=== PATIENT | female | born 1935 | race Caucasian/White ===

== ENCOUNTER 2020-04-26 01:53 | Emergency (ER) | payer MEDICARE ==
[~2020-04-26] VITALS: Ht 170.2 cm; Wt 136.3 kg
[~2020-04-26 01:53] MED LIST: ACET325T9 PO; ASPI-886 PO; CALC600T6 PO; D3 PO; DOCU-109 PO; FURO80TA72 PO; GLUC1CAP48 PO; LISI10TA16 PO; MELO7.5T29 PO; POTA20TA4 PO; TRAM50TA PO; Tylenol Arthritis PO; VITA0.4T17 PO
--- NOTE | 2020-04-26 02:07 | PHYS DOC ---
Past Medical History Past Medical History: Arthritis, Hypertension, Other Additional Past Medical Histor: LYMPHEDEMA Past Surgical History: No Surgical History, Other Additional Past Surgical Histo: PT AND FAMILY DOES NOT KNOW IF SHE HAS HAD ANY SURGERY Smoking Status: Never Smoker Alcohol Use: None Drug Use: None General Adult EDM: Chief Complaint: ALTERED MENTAL STATUS HPI: HPI: 84-year-old female significant history of hypertension, dementia, who presents from nursing facility for the evaluation reported left eye ptosis, first noticed at 1800 yesterday evening. However, additional staff members noted no significant change from baseline. The patient self has dementia, and has no acute medical complaints, but history is otherwise limited. She is tearful upon arrival to the ER, and is unsure why she is here. Review of Systems: Review of Systems: History limited secondary to baseline dementia. Heart Score: Risk Factors: Risk Factors: DM, Current or recent (<one month) smoker, HTN, HLP, family history of CAD, obesity. Risk Scores: Score 0 - 3: 2.5% MACE over next 6 weeks - Discharge Home Score 4 - 6: 20.3% MACE over next 6 weeks - Admit for Clinical Observation Score 7 - 10: 72.7% MACE over next 6 weeks - Early Invasive Strategies Allergies: Allergies: Allergies Coded Allergies Type Severity Reaction Last Updated Verified No Known Drug Allergies 01/26/18 No Physical Exam: PE: Gen: NAD. Head: NC/AT. Eyes: No scleral icterus. No conjunctival injection. PERRL. ENT: MMM. Posterior OP clear. Neck: Supple. NT. CV: RRR. Peripheral pulses intact. Resp: CTAB. Abd: Soft. NT. ND. Obese. MSK: No peripheral cyanosis. Large obese symmetric BLEs. Neuro: A&Ox1 (person). Sensation grossly intact throughout. Symmetric BLE weakness. No aphasia or dysarthria. No facial asymmetry. No ptosis. No gross visual field cut. Skin. Warm. Dry. Psych: Tearful. Current Patient Data: Labs: Laboratory Tests Test 04/26/20 02:42 White Blood Count 9.0 x10^3/uL (4.0-11.0) Red Blood Count 4.50 x10^6/uL (3.50-5.40) Hemoglobin 14.4 g/dL (12.0-15.5) Hematocrit 43.3 % (36.0-47.0) Mean Corpuscular Volume 96 fL (79-100) Mean Corpuscular Hemoglobin 32 pg (25-35) Mean Corpuscular Hemoglobin Concent 33 g/dL (31-37) Red Cell Distribution Width 13.5 % (11.5-14.5) Platelet Count 217 x10^3/uL (140-400) Neutrophils (%) (Auto) 56 % (31-73) Lymphocytes (%) (Auto) 30 % (24-48) Monocytes (%) (Auto) 8 % (0-9) Eosinophils (%) (Auto) 6 % (0-3) Basophils (%) (Auto) 1 % (0-3) Neutrophils # (Auto) 5.0 x10^3/uL (1.8-7.7) Lymphocytes # (Auto) 2.7 x10^3/uL (1.0-4.8) Monocytes # (Auto) 0.7 x10^3/uL (0.0-1.1) Eosinophils # (Auto) 0.5 x10^3/uL (0.0-0.7) Basophils # (Auto) 0.1 x10^3/uL (0.0-0.2) Sodium Level 140 mmol/L (136-145) Chloride Level 104 mmol/L (98-107) Carbon Dioxide Level 29 mmol/L (21-32) Anion Gap 7 (6-14) Blood Urea Nitrogen 23 mg/dL (7-20) Estimated GFR (Cockcroft-Gault) 95.2 BUN/Creatinine Ratio 38 (6-20) Glucose Level 93 mg/dL (70-99) Calcium Level 9.0 mg/dL (8.5-10.1) Total Bilirubin 0.5 mg/dL (0.2-1.0) Aspartate Amino Transf (AST/SGOT) 15 U/L (15-37) Alkaline Phosphatase 91 U/L (46-116) Total Protein 6.9 g/dL (6.4-8.2) Albumin 3.3 g/dL (3.4-5.0) Albumin/Globulin Ratio 0.9 (1.0-1.7) EKG: EKG: [] Radiology/Procedures: Radiology/Procedures: EXAM: CT HEAD WITHOUT CONTRAST. HISTORY: Altered mental status. TECHNIQUE: Computed tomography of the head was performed without intravenous contrast. One or more of the following individualized dose reduction techniques were utilized for this examination: 1. Automated exposure control. 2. Adjustment of the mA and/or kV according to patient size. 3. Use of iterative reconstruction technique. COMPARISON: 01/26/2018. FINDINGS: There is no intracranial hemorrhage. Hypoattenuation within the periventricular white matter indicates mild chronic microangiopathic change. Prominence of the lateral ventricles and hemispheric sulci indicates mild atrophy. The visualized paranasal sinuses appear clear. The orbits are unremarkable. The temporal bones are unremarkable. The calvarium reveals no suspicious lesions. There are atherosclerotic calcifications of the internal carotid and vertebral arteries. IMPRESSION: 1. No acute intracranial findings. 2. Mild atrophy and chronic microangiopathic white matter change. Electronically signed by: Blayne Michele MD (04/26/2020 3:12 AM) [facility] Course & Med Decision Making: Course & Med Decision Making Pertinent Labs and Imaging studies reviewed. (See chart for details) In summary, 84-year-old female who presents from nursing facility for the evaluation of reported left-sided ptosis, though additional staff members reportedly did not appreciate this finding. The patient has no acute medical complaints upon presentation to the ER. I see no ptosis or facial asymmetry. No sequelae of stroke. CT head without contrast with no acute findings noted. Lab work is otherwise unrevealing with the exception of mildly elevated B UN/creatinine ratio, tolerating oral fluids. The patient remains well-appearing and nontoxic. I do not suspect stroke or other acute emergent pathology. She will be discharged back to her nursing facility with outpatient follow-up. Return precautions given. Dragon Disclaimer: Dragrosas Disclaimer: This electronic medical record was generated, in whole or in part, using a voice recognition dictation system. Departure Departure Impression: Primary Impression: Feared condition not demonstrated Disposition: 03 DC/TRF TO SNF Condition: STABLE Referrals: GENNARO TILLEY MD (PCP) Patient Instructions: Medical Screening Exam Additional Instructions: Danyelle's CT head showed no acute findings. Her blood work was otherwise unrevealing as well. Have Danyelle follow up with the primary physician. FRANSISCO JOSE DO Apr 26, 2020 02:07
[2020-04-26 02:51] LABS: BASO # 0.1 x10^3/uL (0.0-0.2); BASO % 1 % (0-3); EOS # 0.5 x10^3/uL (0.0-0.7); EOS % 6 % (0-3); HEMATOCRIT 43.3 % (36.0-47.0); HEMOGLOBIN 14.4 g/dL (12.0-15.5); LYMPH # 2.7 x10^3/uL (1.0-4.8); LYMPH % 30 % (24-48); MEAN CORPUSCULAR HEMOGLOBIN 32 pg (25-35); MEAN CORPUSCULAR HGB CONC 33 g/dL (31-37); MEAN CORPUSCULAR VOLUME 96 fL (79-100); MONO # 0.7 x10^3/uL (0.0-1.1); MONO % 8 % (0-9); NEUT % 56 % (31-73); PLATELET COUNT 217 x10^3/uL (140-400); RED CELL DISTRIBUTION WIDTH 13.5 % (11.5-14.5)
[2020-04-26 02:58] LABS: CREATININE 0.6 mg/dL (0.6-1.0); GFR 95.2; POTASSIUM 4.5 mmol/L (3.5-5.1)
[2020-04-26 03:04] LABS: ALBUMIN 3.3 g/dL (3.4-5.0); ALBUMIN/GLOBULIN RATIO 0.9 (1.0-1.7); MAGNESIUM 2.1 mg/dL (1.8-2.4); TOTAL BILIRUBIN 0.5 mg/dL (0.2-1.0); TOTAL PROTEIN 6.9 g/dL (6.4-8.2)
--- NOTE | 2020-04-26 03:14 | RAD ---
EXAM: CT HEAD WITHOUT CONTRAST. HISTORY: Altered mental status. TECHNIQUE: Computed tomography of the head was performed without intravenous contrast. One or more of the following individualized dose reduction techniques were utilized for this examination: 1. Automated exposure control. 2. Adjustment of the mA and/or kV according to patient size. 3. Use of iterative reconstruction technique. COMPARISON: 01/26/2018. FINDINGS: There is no intracranial hemorrhage. Hypoattenuation within the periventricular white matte r indicates mild chronic microangiopathic change. Prominence of the lateral ventricles and hemispheri c sulci indicates mild atrophy. The visualized paranasal sinuses appear clear. The orbits are unremarkable. The temporal bones are un remarkable. The calvarium reveals no suspicious lesions. There are atherosclerotic calcifications of the internal carotid and vertebral arteries. IMPRESSION: 1. No acute intracranial findings. 2. Mild atrophy and chronic microangiopathic white matter change. Electronically signed by: Blayne Michele MD (04/26/2020 3:12 AM) [facility]
[2020-04-26 08:04] VITALS: BP 153/76
== END 2020-04-26 09:25 ==
LOC: ER 01:53
DX: F03.90 Unspecified dementia, unspecified severity, without behavioral disturbance, psychotic disturbance, mood disturbance, and anxiety (principal); Z71.1 Person with feared health complaint in whom no diagnosis is made; H02.402 Unspecified ptosis of left eyelid; I10 Essential (primary) hypertension; G31.9 Degenerative disease of nervous system, unspecified
CPT/HCPCS: 36415; 70450; 80053; 83735; 85025; 99285-25

== ENCOUNTER 2021-06-12 10:51 | Inpatient (IN) | payer MEDICARE ==
[~2021-06-12] VITALS: Ht 172.7 cm; Wt 102.0 kg
[~2021-06-12 10:51] MED LIST changes: -CALC600T6 PO; +CALC600T60 PO
[2021-06-12] MEDS ORDERED: fentaNYL PF VIAL 100 MCG/2 ML VIAL IVP ONE (11:15)
--- NOTE | 2021-06-12 11:33 | PHYS DOC ---
Past Medical History Past Medical History: Arthritis, Dementia, Depression, Hypertension, Other Additional Past Medical Histor: lymphedema Past Surgical History: Other Additional Past Surgical Histo: unk Smoking Status: Unknown if ever smoked Alcohol Use: None Drug Use: None General Adult EDM: Chief Complaint: LOWEREXTREMITY INJURY HPI: HPI: Patient is an 85-year-old female that presents today via [facility] with right lower leg pain. According to the [facility] report, patient was in her wheelchair on 10 June, and her leg got caught underneath the wheelchair when her wheelchair got caught in a drain, they initially did an x-ray of her foot because that is where her pain was, today they noticed that her right lower leg was bruised and swollen, they repeated another x-ray of her tib-fib and noted to have a tib-fib fracture. Patient has history of dementia and is not able to participate in the HPI. Review of Systems: Review of Systems: Please see HPI for review of symptoms patient is unable to participate in the review of systems due to dementia and patient's combativeness. Heart Score: C/O Chest Pain: No Risk Factors: Risk Factors: DM, Current or recent (<one month) smoker, HTN, HLP, family history of CAD, obesity. Risk Scores: Score 0 - 3: 2.5% MACE over next 6 weeks - Discharge Home Score 4 - 6: 20.3% MACE over next 6 weeks - Admit for Clinical Observation Score 7 - 10: 72.7% MACE over next 6 weeks - Early Invasive Strategies Current Medications: Current Medications Medications (Trade) Dose Ordered Sig/Preston Start Time Stop Time Status Last Admin Dose Admin Fentanyl Citrate (Fentanyl 2ml Vial) 25 mcg 1X ONCE 06/12/21 11:15 06/12/21 11:16 DC Allergies: Allergies: Allergies Coded Allergies Type Severity Reaction Last Updated Verified No Known Drug Allergies 01/26/18 No Physical Exam: PE: Constitutional: Patient is a frail elderly female in mild distress HENT: Normocephalic, atraumatic, bilateral external ears normal, oropharynx moist, no oral exudates, nose normal. [] Eyes: PERRLA, EOMI, conjunctiva normal, no discharge. [] Neck: Normal range of motion, no tenderness, supple, no stridor, no midline tenderness Cardiovascular:Heart rate regular rhythm, no murmur [] Lungs & Thorax: Bilateral breath sounds clear to auscultation [] Abdomen: Bowel sounds hypoactive, soft, no tenderness, no masses, no pulsatile masses. [] Skin: Warm, dry, no erythema, no rash. [] Back: No tenderness, no CVA tenderness. [] Extremities: Patient's right lower leg is swollen and ecchymotic, patient has pain with slight movement of the lower extremity, patient's pulse is 1+, sensory is intact, cap refills less than 2 seconds Neurologic: Alert and oriented X 1, normal motor function, normal sensory function, no focal deficits noted. [] Psychologic: Affect normal, judgement normal, mood hostile. [] Current Patient Data: Labs: Laboratory Tests Test 06/12/21 12:35 06/12/21 13:08 White Blood Count 8.7 x10^3/uL Red Blood Count 3.06 x10^6/uL Hemoglobin 10.7 g/dL Hematocrit 31.5 % Mean Corpuscular Volume 103 fL Mean Corpuscular Hemoglobin 35 pg Mean Corpuscular Hemoglobin Concent 34 g/dL Red Cell Distribution Width 14.4 % Platelet Count 228 x10^3/uL Neutrophils (%) (Auto) 61 % Lymphocytes (%) (Auto) 26 % Monocytes (%) (Auto) 9 % Eosinophils (%) (Auto) 4 % Basophils (%) (Auto) 1 % Neutrophils # (Auto) 5.3 x10^3/uL Lymphocytes # (Auto) 2.2 x10^3/uL Monocytes # (Auto) 0.8 x10^3/uL Eosinophils # (Auto) 0.3 x10^3/uL Basophils # (Auto) 0.1 x10^3/uL Prothrombin Time 14.1 SEC Prothromb Time International Ratio 1.1 Activated Partial Thromboplast Time 28 SEC Sodium Level 143 mmol/L Potassium Level 4.5 mmol/L Chloride Level 108 mmol/L Carbon Dioxide Level 29 mmol/L Anion Gap 6 Blood Urea Nitrogen 21 mg/dL Creatinine 0.8 mg/dL Estimated GFR (Cockcroft-Gault) 68.2 BUN/Creatinine Ratio 26 Glucose Level 110 mg/dL Calcium Level 9.0 mg/dL Total Bilirubin 0.5 mg/dL Aspartate Amino Transf (AST/SGOT) 18 U/L Alanine Aminotransferase (ALT/SGPT) 15 U/L Alkaline Phosphatase 67 U/L Troponin I High Sensitivity 9 ng/L Total Protein 7.1 g/dL Albumin 3.1 g/dL Albumin/Globulin Ratio 0.8 SARS-CoV-2 Antigen (Rapid) Negative Current Medications Medications (Trade) Dose Ordered Sig/Preston Route PRN Reason Start Time Stop Time Status Last Admin Dose Admin Fentanyl Citrate (Fentanyl 2ml Vial) 25 mcg 1X ONCE IVP 06/12/21 11:15 06/12/21 11:16 DC 06/12/21 11:48 Vital Signs: Vital Signs Date Time Temp Pulse Resp B/P (MAP) Pulse Ox O2 Delivery O2 Flow Rate FiO2 06/12/21 11:00 99.2 85 20 101/50 (67) 95 Room Air 99.2 EKG: EKG: [] Radiology/Procedures: Radiology/Procedures: REASON: tib/fib fracture,pt has hx of being pinned from falling from wheelchair. PROCEDURE: TIBIA FIBULA RIGHT EXAM: XR RT TIBIA+FIBULA , XR PELVIS 1-2V, XR CHEST 1V 06/12/2021 11:24 AM CLINICAL INDICATION: Tibia fibula fracture after being pinned after fall from wheelchair COMPARISON: Chest radiograph 01/28/2028 TECHNIQUE: AP upright view of the chest. AP view of the pelvis. AP and lateral view of the right tibia and fibula FINDINGS: CHEST: The cardiac mediastinal silhouette is stable. The lungs are adequately expanded. There is mild interstitial prominence. No consolidation, pleural effusion, or pneumothorax. There is mild thoracic scoliosis. Chronic deformity of the right proximal humerus. PELVIS: Exam is limited by underpenetration and mild internal rotation of the right hip. There is no displaced fracture. No pubic symphysis or sacroiliac joint widening. RIGHT TIBIA AND FIBULA: The bones are diffusely demineralized. There is a mildly displaced proximal tibial metaphyseal fracture with 6 mm medial displacement of the main distal fragment. No obvious involvement of the tibial plateaus. There is a mildly displaced fibular neck fracture. 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 Diffuse subcutaneous edema. Vascular calcifications and phleboliths are seen in the leg. IMPRESSION: 1. No acute cardiopulmonary abnormality. 2. No displaced pelvic fracture. Limited evaluation of the pelvis due to underpenetration and internal rotation of the right hip. 3. Mildly displaced proximal tibial metaphyseal fracture and fibular neck fracture. Electronically signed by: Latrice De Guzman MD (06/12/2021 12:36 PM) [id number] [] Course & Med Decision Making: Course & Med Decision Making Pertinent Labs and Imaging studies reviewed. (See chart for details) [id number] Mcbride with orthopedic services and conferred with him regarding this patient's fracture in her right tibia, he states to admit patient and to splint the patient at this time and he will come and assess the patient on the floor. 12:[address] Gil and he is agreeable to admitting this patient for further evaluation by orthopedics and he will medically manage the patient. Dragon Disclaimer: DragmonEchelle Disclaimer: This electronic medical record was generated, in whole or in part, using a voice recognition dictation system. Departure Departure Impression: Primary Impression: Tibia/fibula fracture Qualified Codes: S82.201A - Unspecified fracture of shaft of right tibia, initial encounter for closed fracture; S82.401A - Unspecified fracture of shaft of right fibula, initial encounter for closed fracture Disposition: ADMITTED INPATIENT Admitting Physician: REDD Condition: STABLE Referrals: GENNARO TILLEY MD (PCP) KRISTI SERRATO APRN Jun 12, 2021 11:32
[2021-06-12] MEDS ORDERED: ONDANSETRON PF 4 MG/2 ML VIAL. IVP PRN (12:15)
--- NOTE | 2021-06-12 12:23 | PDOC1 ---
History and Physical Date of Service: DOS: DATE: 06/12/21 TIME: 12:19 Chief Complaint: Chief Complain: Right leg injury History of Present Illness: HPI: 85-year-old female that presents today via [facility] with right lower leg pain. According to the residential report, patient was in her wheelchair on 10 June, and her leg got caught underneath the wheelchair when her wheelchair got caught in a drain, they initially did an x-ray of her foot because that is where her pain was, today they noticed that her right lower leg was bruised and swollen, they repeated another x-ray of her tib-fib and noted to have a tib-fib fracture. Patient has history of dementia and is not able to participate in the HPI. Past Medical/Surgical History: PMH/PSH: Past Medical History: Arthritis, Dementia, Depression, Hypertension, lymphedema, limited due to dementia Past Surgical History: Unknown, limited due to dementia Allergies: Allergies: Coded Allergies: No Known Drug Allergies (Unverified , 01/26/18) Family History: Family History: Reviewed with no relative findings in the chart, limited due to dementia Social History: Social History: No known history of smoking, drug or alcohol abuse Current Medications: Current Medications Current Medications Fentanyl Citrate (Fentanyl 2ml Vial) 25 mcg 1X ONCE IVP Last administered on 06/12/21at 11:48; Start 06/12/21 at 11:15; Stop 06/12/21 at 11:16; Status DC Ondansetron HCl (Zofran) 4 mg PRN Q8HRS PRN IVP NAUSEA/VOMITING; Start 06/12/21 at 12:15; Stop 06/13/21 at 12:14 Fentanyl Citrate (Fentanyl 2ml Vial) 50 mcg PRN Q2HRS PRN IVP PAIN; Start 06/12/21 at 12:15; Stop 06/13/21 at 12:14 Active Scripts Active Colace (Docusate Sodium) 100 Mg Capsule 100 Mg PO PRN DAILY PRN 30 Days Tylenol (Acetaminophen) 325 Mg Tablet 650 Mg PO PRN Q6HRS PRN 30 Days Tramadol Hcl 50 Mg Tablet 50 Mg PO PRN Q6HRS PRN 6 Days Aspirin Ec (Aspirin) 81 Mg Tablet.dr 81 Mg PO DAILYWBKFT 30 Days Reported Super B Maxi Complex Caplet (Vitamin B Complex/Folic Acid) 0.4 Mg Tablet 0.4 Mg PO DAILY [D3] 25 Mcg PO DAILY Calcium (Calcium Carbonate) 600 Mg Tablet 600 Mg PO DAILY Glucosamine & Chondroitin Cap (Gluc 2KCL/Chondr/Sourav Hy/Hy Ac) 1 Each Capsule 1 Each PO BID Meloxicam 7.5 Mg Tablet 1 Tab PO BID Lisinopril 10 Mg Tablet 1 Tab PO DAILY Potassium Chloride 20 Meq Tablet.er 20 Meq PO DAILY Lasix (Furosemide) 80 Mg Tablet 1 Tab PO DAILY ROS: Review of Systems Review of System Limited due to dementia Physical Exam: Vital Signs: Vital Signs Date Time Temp Pulse Resp B/P (MAP) Pulse Ox O2 Delivery O2 Flow Rate FiO2 06/12/21 11:48 94 Room Air 06/12/21 11:00 99.2 85 20 101/50 (67) 99.2 Physcial Exam: General: Frail appearing and obese lady in mild distress. HEENT: Pupils equally round and reactive to light, EOMI, no discharge, normal conjunctiva Neck: Supple, no nuchal rigidity, no JVD, trachea midline, no tenderness Cardiac: RRR, no murmurs, no gallops, no rubs Chest/Lungs: CTAB, no wheeze, no rhonchi, no crackles Abdomen: soft, non-distended, no guarding, no peritoneal signs, non-tender Back: No tenderness Extremities: no edema, pulses intact, non-tender,capillary refill <3 sec bilateral upper and lower extremities,. Right lower extremity with edema and ecchymosis. Pain upon palpation. Neuro: Alert and awake with no focal deficits. Labs: Labs: Pending to be drawn Images: Images PROCEDURE: TIBIA FIBULA RIGHT EXAM: XR RT TIBIA+FIBULA , XR PELVIS 1-2V, XR CHEST 1V 06/12/2021 11:24 AM CLINICAL INDICATION: Tibia fibula fracture after being pinned after fall from wheelchair COMPARISON: Chest radiograph 01/28/2028 TECHNIQUE: AP upright view of the chest. AP view of the pelvis. AP and lateral view of the right tibia and fibula FINDINGS: CHEST: The cardiac mediastinal silhouette is stable. The lungs are adequately expanded. There is mild interstitial prominence. No consolidation, pleural effusion, or pneumothorax. There is mild thoracic scoliosis. Chronic deformity of the right proximal humerus. PELVIS: Exam is limited by underpenetration and mild internal rotation of the right hip. There is no displaced fracture. No pubic symphysis or sacroiliac joint widening. RIGHT TIBIA AND FIBULA: The bones are diffusely demineralized. There is a mildly displaced proximal tibial metaphyseal fracture with 6 mm medial displacement of the main distal fragment. No obvious involvement of the tibial plateaus. There is a mildly displaced fibular neck fracture. 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 Diffuse subcutaneous edema. Vascular calcifications and phleboliths are seen in the leg. IMPRESSION: 1. No acute cardiopulmonary abnormality. 2. No displaced pelvic fracture. Limited evaluation of the pelvis due to underpenetration and internal rotation of the right hip. 3. Mildly displaced proximal tibial metaphyseal fracture and fibular neck fracture. Assessment/Plan Assessment/Plan Right proximal tib-fib fracture History of arthritis History of hypertension History of dementia History of lymphedema Admit to hospitalist service for further management Ortho consult Justifications for Admission Other Justification SHAMEKA GEE MD Jun 12, 2021 12:23
--- NOTE | 2021-06-12 12:39 | RAD ---
EXAM: XR RT TIBIA+FIBULA , XR PELVIS 1-2V, XR CHEST 1V 06/12/2021 11:24 AM CLINICAL INDICATION: Tibia fibula fracture after being pinned after fall from wheelchair COMPARISON: Chest radiograph 01/28/2028 TECHNIQUE: AP upright view of the chest. AP view of the pelvis. AP and lateral view of the right tib ia and fibula FINDINGS: CHEST: The cardiac mediastinal silhouette is stable. The lungs are adequately expanded. There is mild interstitial prominence. No consolidation, pleural effusion, or pneumothorax. There is mild thoracic scoliosis. Chronic deformity of the right proximal humerus. PELVIS: Exam is limited by underpenetration and mild internal rotation of the right hip. There is no displaced fracture. No pubic symphysis or sacroiliac joint widening. RIGHT TIBIA AND FIBULA: The bones are diffusely demineralized. There is a mildly displaced proximal t ibial metaphyseal fracture with 6 mm medial displacement of the main distal fragment. No obvious invo lvement of the tibial plateaus. There is a mildly displaced fibular neck fracture. There is severe de generative joint disease of the knee. Diffuse subcutaneous edema. Vascular calcifications and phlebol iths are seen in the leg. IMPRESSION: 1. No acute cardiopulmonary abnormality. 2. No displaced pelvic fracture. Limited evaluation of the pelvis due to underpenetration and interna l rotation of the right hip. 3. Mildly displaced proximal tibial metaphyseal fracture and fibular neck fracture. Electronically signed by: Latrice De Guzman MD (06/12/2021 12:36 PM) [id number]
--- NOTE | 2021-06-12 12:51 | EKG ---
[facility] [address] [place] [address] Test Date: 2021-06-12 Test Time: 12:44:18 Pat Name: OSIRIS GALDAMEZ Department: Room: Gender: F [employer]: : 1935 Requested By: KRISTI SERRATO Order Number: [id number] Reading MD: Measurements Intervals [place] Rate: 63 P: -18 ME: 154 QRS: 1 QRSD: 88 T: 73 QT: 392 QTc: 404 Interpretive Statements SINUS RHYTHM T ABNORMALITY IN HIGH LATERAL LEADS ABNORMAL ECG RI6.02 No previous ECG available for comparison
[2021-06-12] MEDS: fentaNYL PF VIAL 100 MCG/2 ML VIAL IVP PRN ×2 (12:55→16:45)
[2021-06-12 12:58] LABS: BASO # 0.1 x10^3/uL (0.0-0.2); BASO % 1 % (0-3); EOS # 0.3 x10^3/uL (0.0-0.7); EOS % 4 % (0-3); HEMATOCRIT 31.5 % (36.0-47.0); HEMOGLOBIN 10.7 g/dL (12.0-15.5); LYMPH # 2.2 x10^3/uL (1.0-4.8); LYMPH % 26 % (24-48); MEAN CORPUSCULAR HEMOGLOBIN 35 pg (25-35); MEAN CORPUSCULAR HGB CONC 34 g/dL (31-37); MEAN CORPUSCULAR VOLUME 103 fL (79-100); MONO # 0.8 x10^3/uL (0.0-1.1); MONO % 9 % (0-9); NEUT # 5.3 x10^3/uL (1.8-7.7); NEUT % 61 % (31-73); PLATELET COUNT 228 x10^3/uL (140-400); RED BLOOD COUNT 3.06 x10^6/uL (3.50-5.40); RED CELL DISTRIBUTION WIDTH 14.4 % (11.5-14.5); WHITE BLOOD COUNT 8.7 x10^3/uL (4.0-11.0)
[2021-06-12 13:07] LABS: CREATININE 0.8 mg/dL (0.6-1.0); GFR 68.2; POTASSIUM 4.5 mmol/L (3.5-5.1)
[2021-06-12 13:10] LABS: PROTHROMBIN TIME PATIENT 14.1 SEC (11.7-14.0)
--- NOTE | 2021-06-12 13:10 | PDOC2 ---
MARYSOL LINARES 06/12/21 1310: CONSULT Date of Consult Date of Consult DATE: 06/12/21 TIME: 13:02 Reason for Consult Reason for Consult: Right tib-fib fracture Referring Physician Referring Physician: Emergency room provider History of Present Illness Reason for Visit: Danyelle Kennedy is an 85-year-old female patient who was brought to [facility] secondary to a right tib-fib fracture identified on plain film x- rays done at her long-term care facility prior to arrival. Of note patient has a longstanding history of dementia and thus details surrounding the events of her injury are obtained from nursing staff. Per report from alf staff the patient was traveling down the hallway in her wheelchair on 06/10/2021 when one of the wheels became caught in a crevice resulting in the right lower extremity becoming trapped under the front of her wheelchair. Patient reportedly had immediate pain following this incident however, it was believed that her right ankle was injured. Plain film x-rays of the right ankle were performed on 06/10/2021 which were reportedly negative. On evaluation today patient exhibited obvious pain and discomfort in the right lower extremity. Thus plain film x-rays of the right tib-fib were performed which did show a proximal tib-fib fracture. Patient was subsequently brought to our facility for further evaluation and care. Per report from nursing staff patient did not fall from her wheelchair at the time of the injury on 06/10/2021. Patient has a longstanding history of dementia and resides at the memory care unit at [facility]. She is reportedly wheelchair-bound at baseline and does not ambulate. Per the patient's medical records she does not take any oral blood thinning medications. It is unknown as to whether the patient has sustained any additional injuries to the right lower extremity in the past. Remaining details surrounding the events of the injury to the RLE are limited at this time due to her cognitive state and inability to make contact with alf staff. Past Medical History Cardiovascular: HTN, Other Pulmonary: No pertinent hx GI: GERD Musculoskeletal: Osteoarthritis Endocrine: Diabetes Past Surgical History Past Surgical History: Other Family History Family History: Hypertension Social History Social History Patient resides at memory care unit at [facility]. Facility contacted [phone]. Patient reportedly wheelchair-bound and does not ambulate at baseline. Remaining social history limited at this time. ALCOHOL: none Drugs: None Lives: with Family Current Problem List Problem List Problems Medical Problems: (1) Tibia/fibula fracture Status: Acute Current Medications Current Medications Current Medications Fentanyl Citrate (Fentanyl 2ml Vial) 25 mcg 1X ONCE IVP Last administered on 06/12/21at 11:48; Start 06/12/21 at 11:15; Stop 06/12/21 at 11:16; Status DC Ondansetron HCl (Zofran) 4 mg PRN Q8HRS PRN IVP NAUSEA/VOMITING; Start 06/12/21 at 12:15; Stop 06/13/21 at 12:14 Fentanyl Citrate (Fentanyl 2ml Vial) 50 mcg PRN Q2HRS PRN IVP PAIN Last administered on 06/12/21at 12:55; Start 06/12/21 at 12:15; Stop 06/13/21 at 12:14 Active Scripts Active Colace (Docusate Sodium) 100 Mg Capsule 100 Mg PO PRN DAILY PRN 30 Days Tylenol (Acetaminophen) 325 Mg Tablet 650 Mg PO PRN Q6HRS PRN 30 Days Tramadol Hcl 50 Mg Tablet 50 Mg PO PRN Q6HRS PRN 6 Days Aspirin Ec (Aspirin) 81 Mg Tablet.dr 81 Mg PO DAILYWBKFT 30 Days Reported Super B Maxi Complex Caplet (Vitamin B Complex/Folic Acid) 0.4 Mg Tablet 0.4 Mg PO DAILY [D3] 25 Mcg PO DAILY Calcium (Calcium Carbonate) 600 Mg Tablet 600 Mg PO DAILY Glucosamine & Chondroitin Cap (Gluc 2KCL/Chondr/Sourav Hy/Hy Ac) 1 Each Capsule 1 Each PO BID Meloxicam 7.5 Mg Tablet 1 Tab PO BID Lisinopril 10 Mg Tablet 1 Tab PO DAILY Potassium Chloride 20 Meq Tablet.er 20 Meq PO DAILY Lasix (Furosemide) 80 Mg Tablet 1 Tab PO DAILY Allergies Allergies: Coded Allergies: No Known Drug Allergies (Unverified , 01/26/18) ROS Review of System A complete 10 point review of systems is limited at this time due to the p atient's current cognitive state and inability to cooperate. Physical Exam General: No acute distress, Other (Opens eyes. Screams profanity. Wiggles toes on command. GCS 13) HEENT: Atraumatic, EOMI Lungs: Normal air movement, Other (No retractions. No accessory muscle use.) Heart: Regular rate Abdomen: Soft, Other (Morbid obesity) Extremities: No tenderness/swelling (Right lower leg), Other (Diffuse bilateral lower extremity edema) Skin: Other (No obvious lacerations or abrasions noted. Stasis dermatitis noted. Erythema and ecchymosis right lower extremity.) Neuro: Other (GCS 13. Wiggles toes right lower extremity on command. ) Psych/Mental Status: Other (Unable to assess) MUSCULOSKELETAL: Other (Focused orthopedic examination right lower extremity: Skin warm and dry. No lacerations or abrasions are noted. No obvious signs of open fracture. Compartments are at the right lower extremity are soft and compressible. Tenderness to palpation right leg. Ecchymosis noted over the anterior medial aspect of the right tibia. Stasis dermatitis noted. No visible surgical scars. Patient does wiggle toes and plantarflex/dorsiflex the right ankle on command. DP pulse faint and 1+ to palpation. Cap refill less than 2 seconds. Remaining motor and sesory examination limited secondary to the patient's cognitive state and inability/desire to cooperate with physical exam. Active and passive range of motion about the right knee and right ankle unable to be assessed due to severe pain and discomfort with any type of movement of the right lower extremity.) Vitals VITALS Vital Signs Date Time Temp Pulse Resp B/P (MAP) Pulse Ox O2 Delivery O2 Flow Rate FiO2 06/12/21 12:55 Room Air 95.0 06/12/21 11:48 94 06/12/21 11:00 99.2 85 20 101/50 (67) 99.2 Labs Labs Laboratory Tests Test 06/12/21 12:35 White Blood Count 8.7 x10^3/uL (4.0-11.0) Red Blood Count 3.06 x10^6/uL (3.50-5.40) Hemoglobin 10.7 g/dL (12.0-15.5) Hematocrit 31.5 % (36.0-47.0) Mean Corpuscular Volume 103 fL (79-100) Mean Corpuscular Hemoglobin 35 pg (25-35) Mean Corpuscular Hemoglobin Concent 34 g/dL (31-37) Red Cell Distribution Width 14.4 % (11.5-14.5) Platelet Count 228 x10^3/uL (140-400) Neutrophils (%) (Auto) 61 % (31-73) Lymphocytes (%) (Auto) 26 % (24-48) Monocytes (%) (Auto) 9 % (0-9) Eosinophils (%) (Auto) 4 % (0-3) Basophils (%) (Auto) 1 % (0-3) Neutrophils # (Auto) 5.3 x10^3/uL (1.8-7.7) Lymphocytes # (Auto) 2.2 x10^3/uL (1.0-4.8) Monocytes # (Auto) 0.8 x10^3/uL (0.0-1.1) Eosinophils # (Auto) 0.3 x10^3/uL (0.0-0.7) Basophils # (Auto) 0.1 x10^3/uL (0.0-0.2) Laboratory Tests Test 06/12/21 12:35 White Blood Count 8.7 x10^3/uL (4.0-11.0) Red Blood Count 3.06 x10^6/uL (3.50-5.40) Hemoglobin 10.7 g/dL (12.0-15.5) Hematocrit 31.5 % (36.0-47.0) Mean Corpuscular Volume 103 fL (79-100) Mean Corpuscular Hemoglobin 35 pg (25-35) Mean Corpuscular Hemoglobin Concent 34 g/dL (31-37) Red Cell Distribution Width 14.4 % (11.5-14.5) Platelet Count 228 x10^3/uL (140-400) Neutrophils (%) (Auto) 61 % (31-73) Lymphocytes (%) (Auto) 26 % (24-48) Monocytes (%) (Auto) 9 % (0-9) Eosinophils (%) (Auto) 4 % (0-3) Basophils (%) (Auto) 1 % (0-3) Neutrophils # (Auto) 5.3 x10^3/uL (1.8-7.7) Lymphocytes # (Auto) 2.2 x10^3/uL (1.0-4.8) Monocytes # (Auto) 0.8 x10^3/uL (0.0-1.1) Eosinophils # (Auto) 0.3 x10^3/uL (0.0-0.7) Basophils # (Auto) 0.1 x10^3/uL (0.0-0.2) Images Images X-rays of the right tib-fib performed in the emergency department upon arrival were reviewed. A displaced obliquely oriented fracture involving the proximal tibial and fibular metadiaphysis is noted. Assessment/Plan Assessment/Plan 85-year-old female status post twisting injury 06/10/2021 Closed displaced proximal tib-fib fracture * NWB RLE * Pain control per primary service * DVT ppx per primary service * Recommend knee immobilizer RLE. However, given the patient's morbid obesity this may be difficult depending on DME size. Recommend removal BID to evaluate soft tissues and monitor for any skin breakdown. If pt is unable to be fitted with knee immobilizer would recommend a well padded long leg posterior splint. * ICE RLE prn pain/discomfort * Non contrast CT R knee * Given the patient's age history of dementia, mobility status (wheelchair bound/minimally ambulatory), and remaining medical commodities (morbid obesity, DM, HTN, HLD, Lymphedema) recommend non-operative management. I did attempt to contact the patient's son (POA) on file but was unsuccessful in doing so. Recommend follow up in the orthopedic clinic in 2-3 weeks following discharge from the hospital with repeat x-rays of the right tib/fib. Call to schedule appointment prior to discharge [phone]. * Call with any further questions or concerns. MICHELLE OTTO II, MD 06/13/21 2040: CONSULT Assessment/Plan Assessment/Plan History and physical examination were performed by myself. I reviewed and agree with the above-noted findings. I do not think we need any further imaging at this point. Per report, the patient does not ambulate. I would like to get her fitted for a hinged knee brace to allow inspection of soft tissues. I recommend nonweightbearing. She should receive DVT prophylaxis. Once medically stable and bed is available, she can be transferred from my standpoint. MARYSOL LINARES Jun 12, 2021 13:10 MICHELLE OTTO II, MD Jun 13, 2021 08:40
[2021-06-12 13:12] LABS: ALBUMIN 3.1 g/dL (3.4-5.0); ALBUMIN/GLOBULIN RATIO 0.8 (1.0-1.7); TOTAL BILIRUBIN 0.5 mg/dL (0.2-1.0); TOTAL PROTEIN 7.1 g/dL (6.4-8.2)
--- NOTE | 2021-06-12 13:45 | NUR ---
Arrived to unit by cart from ER. Pt moaning and crying in pain. Right leg elevated on pillow. Side rails up x's 2 with call light in reach. Cont. monitor. Pt received pain med prior to tx to floor.
[2021-06-12] MEDS ORDERED: ARIP2TAB3 PO (18:26)
[2021-06-12] MEDS ORDERED: NYST15PO9 TP (18:26)
[2021-06-12] MEDS ORDERED: FURO20TA3 PO (18:26)
[2021-06-12] MEDS ORDERED: MIRT-7 PO (18:26)
[2021-06-12] MEDS ORDERED: ESCITALOPRAM OX10 MG PO (18:26)
[2021-06-12] MEDS ORDERED: CHOL500021 PO (18:26)
[2021-06-12] MEDS ORDERED: SENN1TAB62 PO (18:26)
[2021-06-12 19:00] VITALS: BP 128/60
[2021-06-12 23:00] VITALS: BP 134/70
[2021-06-13 03:00] VITALS: BP 108/60
[2021-06-13 07:00] VITALS: BP 101/59
--- NOTE | 2021-06-13 08:42 | PDOC ---
ORTHO PROGRESS NOTES DATE: 06/13/21 TIME: 08:40 Subjective Patient denies any leg pain. She does not recall why she is in this building. Vitals Vital Signs Date Time Temp Pulse Resp B/P (MAP) Pulse Ox O2 Delivery O2 Flow Rate FiO2 06/13/21 07:00 99.5 77 18 101/59 (73) 92 Room Air 99.5 06/12/21 12:55 95.0 Labs Laboratory Tests Test 06/12/21 12:35 06/12/21 13:08 White Blood Count 8.7 x10^3/uL (4.0-11.0) Red Blood Count 3.06 x10^6/uL (3.50-5.40) Hemoglobin 10.7 g/dL (12.0-15.5) Hematocrit 31.5 % (36.0-47.0) Mean Corpuscular Volume 103 fL (79-100) Mean Corpuscular Hemoglobin 35 pg (25-35) Mean Corpuscular Hemoglobin Concent 34 g/dL (31-37) Red Cell Distribution Width 14.4 % (11.5-14.5) Platelet Count 228 x10^3/uL (140-400) Neutrophils (%) (Auto) 61 % (31-73) Lymphocytes (%) (Auto) 26 % (24-48) Monocytes (%) (Auto) 9 % (0-9) Eosinophils (%) (Auto) 4 % (0-3) Basophils (%) (Auto) 1 % (0-3) Neutrophils # (Auto) 5.3 x10^3/uL (1.8-7.7) Lymphocytes # (Auto) 2.2 x10^3/uL (1.0-4.8) Monocytes # (Auto) 0.8 x10^3/uL (0.0-1.1) Eosinophils # (Auto) 0.3 x10^3/uL (0.0-0.7) Basophils # (Auto) 0.1 x10^3/uL (0.0-0.2) Prothrombin Time 14.1 SEC (11.7-14.0) Prothromb Time International Ratio 1.1 (0.8-1.1) Activated Partial Thromboplast Time 28 SEC (24-38) Sodium Level 143 mmol/L (136-145) Potassium Level 4.5 mmol/L (3.5-5.1) Chloride Level 108 mmol/L (98-107) Carbon Dioxide Level 29 mmol/L (21-32) Anion Gap 6 (6-14) Blood Urea Nitrogen 21 mg/dL (7-20) Creatinine 0.8 mg/dL (0.6-1.0) Estimated GFR (Cockcroft-Gault) 68.2 BUN/Creatinine Ratio 26 (6-20) Glucose Level 110 mg/dL (70-99) Calcium Level 9.0 mg/dL (8.5-10.1) Total Bilirubin 0.5 mg/dL (0.2-1.0) Aspartate Amino Transf (AST/SGOT) 18 U/L (15-37) Alanine Aminotransferase (ALT/SGPT) 15 U/L (14-59) Alkaline Phosphatase 67 U/L (46-116) Troponin I High Sensitivity 9 ng/L (4-50) Total Protein 7.1 g/dL (6.4-8.2) Albumin 3.1 g/dL (3.4-5.0) Albumin/Globulin Ratio 0.8 (1.0-1.7) Coronavirus (COVID-19)(PCR) Not detected (NOT DETECTD) SARS-CoV-2 Antigen (Rapid) Negative (NEGATIVE) Laboratory Tests Test 06/12/21 12:35 06/12/21 13:08 White Blood Count 8.7 x10^3/uL (4.0-11.0) Red Blood Count 3.06 x10^6/uL (3.50-5.40) Hemoglobin 10.7 g/dL (12.0-15.5) Hematocrit 31.5 % (36.0-47.0) Mean Corpuscular Volume 103 fL (79-100) Mean Corpuscular Hemoglobin 35 pg (25-35) Mean Corpuscular Hemoglobin Concent 34 g/dL (31-37) Red Cell Distribution Width 14.4 % (11.5-14.5) Platelet Count 228 x10^3/uL (140-400) Neutrophils (%) (Auto) 61 % (31-73) Lymphocytes (%) (Auto) 26 % (24-48) Monocytes (%) (Auto) 9 % (0-9) Eosinophils (%) (Auto) 4 % (0-3) Basophils (%) (Auto) 1 % (0-3) Neutrophils # (Auto) 5.3 x10^3/uL (1.8-7.7) Lymphocytes # (Auto) 2.2 x10^3/uL (1.0-4.8) Monocytes # (Auto) 0.8 x10^3/uL (0.0-1.1) Eosinophils # (Auto) 0.3 x10^3/uL (0.0-0.7) Basophils # (Auto) 0.1 x10^3/uL (0.0-0.2) Prothrombin Time 14.1 SEC (11.7-14.0) Prothromb Time International Ratio 1.1 (0.8-1.1) Activated Partial Thromboplast Time 28 SEC (24-38) Sodium Level 143 mmol/L (136-145) Potassium Level 4.5 mmol/L (3.5-5.1) Chloride Level 108 mmol/L (98-107) Carbon Dioxide Level 29 mmol/L (21-32) Anion Gap 6 (6-14) Blood Urea Nitrogen 21 mg/dL (7-20) Creatinine 0.8 mg/dL (0.6-1.0) Estimated GFR (Cockcroft-Gault) 68.2 BUN/Creatinine Ratio 26 (6-20) Glucose Level 110 mg/dL (70-99) Calcium Level 9.0 mg/dL (8.5-10.1) Total Bilirubin 0.5 mg/dL (0.2-1.0) Aspartate Amino Transf (AST/SGOT) 18 U/L (15-37) Alanine Aminotransferase (ALT/SGPT) 15 U/L (14-59) Alkaline Phosphatase 67 U/L (46-116) Troponin I High Sensitivity 9 ng/L (4-50) Total Protein 7.1 g/dL (6.4-8.2) Albumin 3.1 g/dL (3.4-5.0) Albumin/Globulin Ratio 0.8 (1.0-1.7) Coronavirus (COVID-19)(PCR) Not detected (NOT DETECTD) SARS-CoV-2 Antigen (Rapid) Negative (NEGATIVE) Notes She is awake. She is oriented to person, she is not oriented to place or time. Right lower extremity is in a splint. She can wiggle her toes. She does not follow all commands. Problems: (1) Tibia/fibula fracture Assessment and Plan I do not think she is an operative candidate. We will treat her conservatively. I recommend nonweightbearing. [facility] can fit a hinged knee brace locked in extension. She can be transferred once medically stable. She should follow-up with me in 2 weeks. Problem Qualifiers (1) Tibia/fibula fracture: Encounter type: subsequent encounter Fracture type: closed Laterality: right Fracture healing: with routine healing Qualified Codes: S82.201D - Unspecified fracture of shaft of right tibia, subsequent encounter for closed fracture with routine healing; S82.401D - Unspecified fracture of shaft of right fibula, subsequent encounter for closed fracture with routine healing MICHELLE OTTO II, MD Jun 13, 2021 08:42
[2021-06-13 11:00] VITALS: BP 110/60
--- NOTE | 2021-06-13 12:00 | PDOC ---
[employer] PROGRESS NOTE Date of Service DOS: DATE: 06/13/21 TIME: 11:59 Chief Complaint Chief Complaint Right proximal tib-fib fracture acute pain dementia, poor ability to direct History of arthritis History of hypertension History of lymphedema obesity, BMI listed as 34, she looks larger History of Present Illness History of Present Illness I saw her this AM and she fought with the [employer] rep when he was putting a brace on her leg, compliance and PT OT ability to work with her will probably be limited Vitals/I&O Vitals/I&O: Vital Signs Date Time Temp Pulse Resp B/P (MAP) Pulse Ox O2 Delivery O2 Flow Rate FiO2 06/13/21 11:00 99.4 76 18 110/60 (77) 94 Room Air 99.4 06/12/21 12:55 95.0 I & O 06/12/21 06/12/21 06/13/21 15:00 23:00 07:00 Intake Total 120 ml Balance 120 ml Physical Exam Physical Exam: not oriented General: No acute distress, Other (Opens eyes. Screams profanity. Wiggles toes on command. GCS 13) Heart: Regular rate Lungs: Clear Abdomen: Soft, Other (Morbid obesity) Extremities: No cyanosis, No tenderness/swelling (Right lower leg), Other (Diffuse bilateral lower extremity edema) Skin: Other (No obvious lacerations or abrasions noted. Stasis dermatitis noted. Erythema and ecchymosis right lower extremity.) Labs Labs: Laboratory Tests Test 06/12/21 12:35 06/12/21 13:08 White Blood Count 8.7 x10^3/uL (4.0-11.0) Red Blood Count 3.06 x10^6/uL (3.50-5.40) Hemoglobin 10.7 g/dL (12.0-15.5) Hematocrit 31.5 % (36.0-47.0) Mean Corpuscular Volume 103 fL (79-100) Mean Corpuscular Hemoglobin 35 pg (25-35) Mean Corpuscular Hemoglobin Concent 34 g/dL (31-37) Red Cell Distribution Width 14.4 % (11.5-14.5) Platelet Count 228 x10^3/uL (140-400) Neutrophils (%) (Auto) 61 % (31-73) Lymphocytes (%) (Auto) 26 % (24-48) Monocytes (%) (Auto) 9 % (0-9) Eosinophils (%) (Auto) 4 % (0-3) Basophils (%) (Auto) 1 % (0-3) Neutrophils # (Auto) 5.3 x10^3/uL (1.8-7.7) Lymphocytes # (Auto) 2.2 x10^3/uL (1.0-4.8) Monocytes # (Auto) 0.8 x10^3/uL (0.0-1.1) Eosinophils # (Auto) 0.3 x10^3/uL (0.0-0.7) Basophils # (Auto) 0.1 x10^3/uL (0.0-0.2) Prothrombin Time 14.1 SEC (11.7-14.0) Prothromb Time International Ratio 1.1 (0.8-1.1) Activated Partial Thromboplast Time 28 SEC (24-38) Sodium Level 143 mmol/L (136-145) Potassium Level 4.5 mmol/L (3.5-5.1) Chloride Level 108 mmol/L (98-107) Carbon Dioxide Level 29 mmol/L (21-32) Anion Gap 6 (6-14) Blood Urea Nitrogen 21 mg/dL (7-20) Creatinine 0.8 mg/dL (0.6-1.0) Estimated GFR (Cockcroft-Gault) 68.2 BUN/Creatinine Ratio 26 (6-20) Glucose Level 110 mg/dL (70-99) Calcium Level 9.0 mg/dL (8.5-10.1) Total Bilirubin 0.5 mg/dL (0.2-1.0) Aspartate Amino Transf (AST/SGOT) 18 U/L (15-37) Alanine Aminotransferase (ALT/SGPT) 15 U/L (14-59) Alkaline Phosphatase 67 U/L (46-116) Troponin I High Sensitivity 9 ng/L (4-50) Total Protein 7.1 g/dL (6.4-8.2) Albumin 3.1 g/dL (3.4-5.0) Albumin/Globulin Ratio 0.8 (1.0-1.7) Coronavirus (COVID-19)(PCR) Not detected (NOT DETECTD) SARS-CoV-2 Antigen (Rapid) Negative (NEGATIVE) Assessment and Plan Assessmemt and Plan Problems Medical Problems: (1) Tibia/fibula fracture Status: Acute Comment Review of Relevant I have reviewed the following items paulino (where applicable) has been applied. Medications: Current Medications Medications (Trade) Dose Ordered Sig/Preston Route PRN Reason Start Time Stop Time Status Last Admin Dose Admin Fentanyl Citrate (Fentanyl 2ml Vial) 50 mcg PRN Q2HRS PRN IVP PAIN 06/12/21 12:15 06/13/21 12:14 06/12/21 16:45 Justifications for Admission Other Justification IDALIA BLACK MD Jun 13, 2021 12:00
[2021-06-13 15:00] VITALS: BP 112/60
--- NOTE | 2021-06-13 15:36 | NUR ---
Per [facility] policy, pt assessed and is not deemed an elopement risk at this time.
[2021-06-13 19:00] VITALS: BP 123/52
[2021-06-13] MEDS: SENNOSIDES/DOCUSATE 8.6/50MG TABLET. PO SCH (22:46)
[2021-06-13] MEDS: ARIPiprazole 2 MG TABLET PO SCH (22:46)
[2021-06-13] MEDS: ACETAMINOPHEN 325 MG TABLET. PO PRN (22:47)
[2021-06-13 23:00] VITALS: BP 95/46
[2021-06-14] VITALS (7 sets, daily range): BP systolic 76–116; BP diastolic 34–75
[2021-06-14] MEDS: ASPIRIN ENTERIC COATED 81 MG TABLET.DR. PO SCH (08:52)
[2021-06-14] MEDS: SENNOSIDES/DOCUSATE 8.6/50MG TABLET. PO SCH ×2 (08:52→21:28)
[2021-06-14] MEDS ORDERED: FUROSEMIDE 20 MG TABLET PO SCH (09:00)
[2021-06-14] MEDS ORDERED: LISINOPRIL 10 MG TABLET PO SCH (09:00)
[2021-06-14] MEDS ORDERED: POTASSIUM CHLORIDE 20 MEQ TABLET.ER. PO SCH (09:00)
--- NOTE | 2021-06-14 14:45 | NUR ---
Pt BP 76/34 HR 75. Pt awake, but not oriented. Dr. Robles notified. 250cc NS Bolus started. PIV infiltrated in GABRIELLE. New 22g L hand started with good blood return and flushes effortlessly. Infiltrated IV removed and warm compress applied. Repeat BP 116/54 HR 69. Will continue to monitor.
[2021-06-14] MEDS ORDERED: IV NORMAL SALINE 500ML BAG 250 ML IV ONE (15:00)
--- NOTE | 2021-06-14 15:06 | PDOC ---
GENERAL General: Patient examined chart reviewed today is hospital day 3 for this patient with u nderlying dementia who resides in the memory unit in [place] admitted after trip and fall at home in which she sustained a right lower extremity fracture. Plan is for conservative management with nonweightbearing, leg brace, and therapy as tolerated. She will need a lot of support on discharge. We will consult physical therapy and Occupational Therapy to help with discharge planning. She is hypotensive this afternoon. We will hold her lisinopril, furosemide, potassium. We will treat with a 250 cc bolus and reassess. She needs a lot of assistance with hydration and eating. We will need to encourage her to stay hydrated. Patient is otherwise without new complaint. Time spent today is 30 minutes with greater than 50% in counseling and coordination of care most of which in discussion with patient and team regarding care plan and progress. Problems: (1) Tibia/fibula fracture (2) Dementia VITAL SIGNS Vital Signs/I&O: Vital Signs Date Time Temp Pulse Resp B/P (MAP) Pulse Ox O2 Delivery O2 Flow Rate FiO2 06/14/21 10:49 98.8 70 16 107/44 (65) 92 Room Air 98.8 I & O 06/13/21 06/13/21 06/14/21 15:00 23:00 07:00 Intake Total 120 ml 400 ml Balance 120 ml 400 ml In general the patient is pleasant sitting up in bed resting comfortably at baseline orientation in no acute distress HEENT exam is unremarkable for acute abnormality Chest is clear to auscultation Heart S1-S2 normal regular rate and rhythm no murmurs or gallops are noted Abdomen is obese soft nontender nondistended no masses organomegaly noted Extremity exam is notable for that the right lower extremity is in a leg brace left lower extremity has significant changes consistent with chronic venous stasis. She has much of her body weight in her bilateral lower extremities. ALLERGIES Allergies: Allergies Coded Allergies Type Severity Reaction Last Updated Verified No Known Drug Allergies 01/26/18 No MEDS Medications: Current Medications Medications (Trade) Dose Ordered Sig/Preston Start Time Stop Time Status Last Admin Dose Admin Acetaminophen (Tylenol) 650 mg PRN Q6HRS PRN 06/13/21 19:45 06/13/21 22:47 Aripiprazole (Abilify) 2 mg HS 06/13/21 21:00 06/13/21 22:46 Aspirin (Ecotrin) 81 mg DAILYWBKFT 06/14/21 08:00 06/14/21 08:52 Fentanyl Citrate (Fentanyl 2ml Vial) 50 mcg PRN Q2HRS PRN 06/12/21 12:15 06/13/21 12:14 DC 06/12/21 16:45 Furosemide (Lasix) 20 mg DAILY 06/14/21 09:00 06/14/21 08:52 Lisinopril (Prinivil) 10 mg DAILY 06/14/21 09:00 06/14/21 08:52 Ondansetron HCl (Zofran) 4 mg PRN Q8HRS PRN 06/12/21 12:15 06/13/21 12:14 DC Potassium Chloride (Klor-Con) 20 meq DAILY 06/14/21 09:00 06/14/21 08:52 Senna/Docusate Sodium (Senna Plus) 1 tab BID 06/13/21 21:00 06/14/21 08:52 Current Medications Medications (Trade) Dose Ordered Sig/Preston Route PRN Reason Start Time Stop Time Status Last Admin Dose Admin Acetaminophen (Tylenol) 650 mg PRN Q6HRS PRN PO pain/fever 06/13/21 19:45 06/13/21 22:47 Aripiprazole (Abilify) 2 mg HS PO 06/13/21 21:00 06/13/21 22:46 Aspirin (Ecotrin) 81 mg DAILYWBKFT PO 06/14/21 08:00 06/14/21 08:52 Furosemide (Lasix) 20 mg DAILY PO 06/14/21 09:00 06/14/21 08:52 Lisinopril (Prinivil) 10 mg DAILY PO 06/14/21 09:00 06/14/21 08:52 Potassium Chloride (Klor-Con) 20 meq DAILY PO 06/14/21 09:00 06/14/21 08:52 Senna/Docusate Sodium (Senna Plus) 1 tab BID PO 06/13/21 21:00 06/14/21 08:52 ASSESSMENT & PLAN A&P Plan as noted above This note was created using Path and may have omissions and/or errors due to the nature of real-time voice career agent. Justifications for Admission Other Justification Problem Qualifiers (1) Tibia/fibula fracture: Encounter type: subsequent encounter Fracture type: closed Laterality: right Fracture healing: with routine healing Qualified Codes: S82.201D - Unspecified fracture of shaft of right tibia, subsequent encounter for closed fracture with routine healing; S82.401D - Unspecified fracture of shaft of right fibula, subsequent encounter for closed fracture with routine healing MAURO VALVERDE MD Jun 14, 2021 15:06
[2021-06-14] MEDS: ARIPiprazole 2 MG TABLET PO SCH (21:28)
[2021-06-15 03:00] VITALS: BP 125/79
[2021-06-15 07:00] VITALS: BP 127/68
[2021-06-15 07:21] LABS: BASO % 1 % (0-3); EOS # 0.3 x10^3/uL (0.0-0.7); EOS % 4 % (0-3); HEMATOCRIT 28.4 % (36.0-47.0); HEMOGLOBIN 9.8 g/dL (12.0-15.5); LYMPH # 1.8 x10^3/uL (1.0-4.8); LYMPH % 27 % (24-48); MEAN CORPUSCULAR HEMOGLOBIN 35 pg (25-35); MEAN CORPUSCULAR HGB CONC 35 g/dL (31-37); MEAN CORPUSCULAR VOLUME 102 fL (79-100); MONO # 0.6 x10^3/uL (0.0-1.1); MONO % 9 % (0-9); NEUT # 4.1 x10^3/uL (1.8-7.7); NEUT % 59 % (31-73); PLATELET COUNT 242 x10^3/uL (140-400); RED BLOOD COUNT 2.79 x10^6/uL (3.50-5.40); RED CELL DISTRIBUTION WIDTH 13.2 % (11.5-14.5); WHITE BLOOD COUNT 6.9 x10^3/uL (4.0-11.0)
[2021-06-15 07:36] LABS: ALBUMIN 2.4 g/dL (3.4-5.0); ALBUMIN/GLOBULIN RATIO 0.6 (1.0-1.7); CREATININE 0.6 mg/dL (0.6-1.0); POTASSIUM 3.4 mmol/L (3.5-5.1); TOTAL BILIRUBIN 0.7 mg/dL (0.2-1.0); TOTAL PROTEIN 6.1 g/dL (6.4-8.2)
[2021-06-15] MEDS: SENNOSIDES/DOCUSATE 8.6/50MG TABLET. PO SCH ×2 (08:57→21:00)
[2021-06-15] MEDS: ACETAMINOPHEN 325 MG TABLET. PO PRN (08:57)
[2021-06-15] MEDS: ASPIRIN ENTERIC COATED 81 MG TABLET.DR. PO SCH (08:57)
[2021-06-15 11:00] VITALS: BP 116/51
--- NOTE | 2021-06-15 14:19 | PDOC ---
GENERAL General: Patient examined chart reviewed patient is sleeping on my assessment this afternoon no reported events overnight. Plan is for discharge to skilled rehab early this week. Continue current management otherwise Problems: (1) Dementia (2) Hypotension (3) Tibia/fibula fracture (4) Falls VITAL SIGNS Vital Signs/I&O: Vital Signs Date Time Temp Pulse Resp B/P (MAP) Pulse Ox O2 Delivery O2 Flow Rate FiO2 06/15/21 11:00 55 16 116/51 (72) 92 Room Air 06/15/21 07:00 98.9 98.9 I & O 06/14/21 06/14/21 06/15/21 15:00 23:00 07:00 Intake Total 120 ml 370 ml Output Total 200 ml Balance -80 ml 370 ml Patient is sleeping on my evaluation this afternoon she does not awaken for the exam HEENT exam is unremarkable for acute abnormality Chest is clear to auscultation Heart S1-S2 normal regular rate and rhythm no murmurs or gallops are noted Abdomen soft nontender nondistended no masses organomegaly noted Extremity exam is unremarkable for acute abnormality surgical bandages are dry clean and intact ALLERGIES Allergies: Allergies Coded Allergies Type Severity Reaction Last Updated Verified No Known Drug Allergies 01/26/18 No MEDS Medications: Current Medications Medications (Trade) Dose Ordered Sig/Preston Start Time Stop Time Status Last Admin Dose Admin Acetaminophen (Tylenol) 650 mg PRN Q6HRS PRN 06/13/21 19:45 06/15/21 08:57 Aripiprazole (Abilify) 2 mg HS 06/13/21 21:00 06/14/21 21:28 Aspirin (Ecotrin) 81 mg DAILYWBKFT 06/14/21 08:00 06/15/21 08:57 Fentanyl Citrate (Fentanyl 2ml Vial) 50 mcg PRN Q2HRS PRN 06/12/21 12:15 06/13/21 12:14 DC 06/12/21 16:45 Furosemide (Lasix) 20 mg DAILY 06/14/21 09:00 06/14/21 14:57 DC 06/14/21 08:52 Lisinopril (Prinivil) 10 mg DAILY 06/14/21 09:00 06/14/21 14:57 DC 06/14/21 08:52 Ondansetron HCl (Zofran) 4 mg PRN Q8HRS PRN 06/12/21 12:15 06/13/21 12:14 DC Potassium Chloride (Klor-Con) 20 meq DAILY 06/14/21 09:00 06/14/21 14:57 DC 06/14/21 08:52 Senna/Docusate Sodium (Senna Plus) 1 tab BID 06/13/21 21:00 06/15/21 08:57 Sodium Chloride 250 ml @ 250 mls/hr 1X ONCE 06/14/21 15:00 06/14/21 15:59 DC 06/14/21 15:00 Current Medications Medications (Trade) Dose Ordered Sig/Preston Route PRN Reason Start Time Stop Time Status Last Admin Dose Admin Sodium Chloride 250 ml @ 250 mls/hr 1X ONCE IV 06/14/21 15:00 06/14/21 15:59 DC 06/14/21 15:00 LAB Lab: Laboratory Tests Test 06/15/21 06:25 White Blood Count 6.9 x10^3/uL (4.0-11.0) Red Blood Count 2.79 x10^6/uL (3.50-5.40) L Hemoglobin 9.8 g/dL (12.0-15.5) L Hematocrit 28.4 % (36.0-47.0) L Mean Corpuscular Volume 102 fL (79-100) H Mean Corpuscular Hemoglobin 35 pg (25-35) Mean Corpuscular Hemoglobin Concent 35 g/dL (31-37) Red Cell Distribution Width 13.2 % (11.5-14.5) Platelet Count 242 x10^3/uL (140-400) Neutrophils (%) (Auto) 59 % (31-73) Lymphocytes (%) (Auto) 27 % (24-48) Monocytes (%) (Auto) 9 % (0-9) Eosinophils (%) (Auto) 4 % (0-3) H Basophils (%) (Auto) 1 % (0-3) Neutrophils # (Auto) 4.1 x10^3/uL (1.8-7.7) Lymphocytes # (Auto) 1.8 x10^3/uL (1.0-4.8) Monocytes # (Auto) 0.6 x10^3/uL (0.0-1.1) Eosinophils # (Auto) 0.3 x10^3/uL (0.0-0.7) Basophils # (Auto) 0.0 x10^3/uL (0.0-0.2) Sodium Level 137 mmol/L (136-145) Potassium Level 3.4 mmol/L (3.5-5.1) L Chloride Level 105 mmol/L (98-107) Carbon Dioxide Level 25 mmol/L (21-32) Anion Gap 7 (6-14) Blood Urea Nitrogen 12 mg/dL (7-20) Creatinine 0.6 mg/dL (0.6-1.0) Estimated GFR (Cockcroft-Gault) 95.0 BUN/Creatinine Ratio 20 (6-20) Glucose Level 89 mg/dL (70-99) Calcium Level 8.0 mg/dL (8.5-10.1) L Total Bilirubin 0.7 mg/dL (0.2-1.0) Aspartate Amino Transferase (AST) 10 U/L (15-37) L Alanine Aminotransferase (ALT) 10 U/L (14-59) L Alkaline Phosphatase 56 U/L (46-116) Total Protein 6.1 g/dL (6.4-8.2) L Albumin 2.4 g/dL (3.4-5.0) L Albumin/Globulin Ratio 0.6 (1.0-1.7) L Laboratory Tests 06/15/21 06:25 Laboratory Tests 06/15/21 06:25 ASSESSMENT & PLAN A&P Plan as noted above This note was created using [employer] and may have omissions and/or err ors due to the nature of real-time voice poultry picker. Justifications for Admission Other Justification Problem Qualifiers (1) Tibia/fibula fracture: Encounter type: subsequent encounter Fracture type: closed Laterality: right Fracture healing: with routine healing Qualified Codes: S82.201D - Unspecified fracture of shaft of right tibia, subsequent encounter for closed fracture with routine healing; S82.401D - Unspecified fracture of shaft of right fibula, subsequent encounter for closed fracture with routine healing MAURO VALVERDE MD Jun 15, 2021 14:19
[2021-06-15 15:00] VITALS: BP 129/70
[2021-06-15 19:00] VITALS: BP_SYST 122; BP_SYST 137; BP_DIAS 62; BP_DIAS 91
[2021-06-15] MEDS: ARIPiprazole 2 MG TABLET PO SCH (21:00)
[2021-06-15 23:00] VITALS: BP 128/55
[2021-06-16 03:00] VITALS: BP 128/71
[2021-06-16 07:00] VITALS: BP 133/72
[2021-06-16 07:01] LABS: BASO % 1 % (0-3); EOS # 0.4 x10^3/uL (0.0-0.7); EOS % 6 % (0-3); HEMATOCRIT 31.9 % (36.0-47.0); HEMOGLOBIN 10.9 g/dL (12.0-15.5); LYMPH # 2.4 x10^3/uL (1.0-4.8); LYMPH % 34 % (24-48); MEAN CORPUSCULAR HEMOGLOBIN 35 pg (25-35); MEAN CORPUSCULAR HGB CONC 34 g/dL (31-37); MEAN CORPUSCULAR VOLUME 102 fL (79-100); MONO # 0.6 x10^3/uL (0.0-1.1); MONO % 9 % (0-9); NEUT # 3.6 x10^3/uL (1.8-7.7); NEUT % 51 % (31-73); PLATELET COUNT 276 x10^3/uL (140-400); RED BLOOD COUNT 3.11 x10^6/uL (3.50-5.40); RED CELL DISTRIBUTION WIDTH 13.5 % (11.5-14.5); WHITE BLOOD COUNT 7.1 x10^3/uL (4.0-11.0)
[2021-06-16 07:24] LABS: ALBUMIN 2.5 g/dL (3.4-5.0); ALBUMIN/GLOBULIN RATIO 0.6 (1.0-1.7); CALCIUM 8.4 mg/dL (8.5-10.1); CREATININE 0.5 mg/dL (0.6-1.0); GFR 117.3; POTASSIUM 3.6 mmol/L (3.5-5.1); TOTAL BILIRUBIN 0.8 mg/dL (0.2-1.0); TOTAL PROTEIN 6.5 g/dL (6.4-8.2)
--- NOTE | 2021-06-16 08:31 | PDOC ---
ORTHO PROGRESS NOTES DATE: 06/16/21 TIME: 08:30 Subjective Patient has been resting comfortably. No new complaints Vitals Vital Signs Date Time Temp Pulse Resp B/P (MAP) Pulse Ox O2 Delivery O2 Flow Rate FiO2 06/16/21 03:00 97.6 70 20 128/71 (90) 93 Room Air 97.6 Labs Laboratory Tests Test 06/15/21 06:25 06/16/21 04:15 White Blood Count 6.9 x10^3/uL (4.0-11.0) 7.1 x10^3/uL (4.0-11.0) Red Blood Count 2.79 x10^6/uL (3.50-5.40) 3.11 x10^6/uL (3.50-5.40) Hemoglobin 9.8 g/dL (12.0-15.5) 10.9 g/dL (12.0-15.5) Hematocrit 28.4 % (36.0-47.0) 31.9 % (36.0-47.0) Mean Corpuscular Volume 102 fL (79-100) 102 fL (79-100) Mean Corpuscular Hemoglobin 35 pg (25-35) 35 pg (25-35) Mean Corpuscular Hemoglobin Concent 35 g/dL (31-37) 34 g/dL (31-37) Red Cell Distribution Width 13.2 % (11.5-14.5) 13.5 % (11.5-14.5) Platelet Count 242 x10^3/uL (140-400) 276 x10^3/uL (140-400) Neutrophils (%) (Auto) 59 % (31-73) 51 % (31-73) Lymphocytes (%) (Auto) 27 % (24-48) 34 % (24-48) Monocytes (%) (Auto) 9 % (0-9) 9 % (0-9) Eosinophils (%) (Auto) 4 % (0-3) 6 % (0-3) Basophils (%) (Auto) 1 % (0-3) 1 % (0-3) Neutrophils # (Auto) 4.1 x10^3/uL (1.8-7.7) 3.6 x10^3/uL (1.8-7.7) Lymphocytes # (Auto) 1.8 x10^3/uL (1.0-4.8) 2.4 x10^3/uL (1.0-4.8) Monocytes # (Auto) 0.6 x10^3/uL (0.0-1.1) 0.6 x10^3/uL (0.0-1.1) Eosinophils # (Auto) 0.3 x10^3/uL (0.0-0.7) 0.4 x10^3/uL (0.0-0.7) Basophils # (Auto) 0.0 x10^3/uL (0.0-0.2) 0.0 x10^3/uL (0.0-0.2) Sodium Level 137 mmol/L (136-145) 140 mmol/L (136-145) Potassium Level 3.4 mmol/L (3.5-5.1) 3.6 mmol/L (3.5-5.1) Chloride Level 105 mmol/L (98-107) 105 mmol/L (98-107) Carbon Dioxide Level 25 mmol/L (21-32) 27 mmol/L (21-32) Anion Gap 7 (6-14) 8 (6-14) Blood Urea Nitrogen 12 mg/dL (7-20) 11 mg/dL (7-20) Creatinine 0.6 mg/dL (0.6-1.0) 0.5 mg/dL (0.6-1.0) Estimated GFR (Cockcroft-Gault) 95.0 117.3 BUN/Creatinine Ratio 20 (6-20) 22 (6-20) Glucose Level 89 mg/dL (70-99) 70 mg/dL (70-99) Calcium Level 8.0 mg/dL (8.5-10.1) 8.4 mg/dL (8.5-10.1) Total Bilirubin 0.7 mg/dL (0.2-1.0) 0.8 mg/dL (0.2-1.0) Aspartate Amino Transf (AST/SGOT) 10 U/L (15-37) 13 U/L (15-37) Alanine Aminotransferase (ALT/SGPT) 10 U/L (14-59) 14 U/L (14-59) Alkaline Phosphatase 56 U/L (46-116) 58 U/L (46-116) Total Protein 6.1 g/dL (6.4-8.2) 6.5 g/dL (6.4-8.2) Albumin 2.4 g/dL (3.4-5.0) 2.5 g/dL (3.4-5.0) Albumin/Globulin Ratio 0.6 (1.0-1.7) 0.6 (1.0-1.7) Laboratory Tests Test 06/16/21 04:15 White Blood Count 7.1 x10^3/uL (4.0-11.0) Red Blood Count 3.11 x10^6/uL (3.50-5.40) Hemoglobin 10.9 g/dL (12.0-15.5) Hematocrit 31.9 % (36.0-47.0) Mean Corpuscular Volume 102 fL (79-100) Mean Corpuscular Hemoglobin 35 pg (25-35) Mean Corpuscular Hemoglobin Concent 34 g/dL (31-37) Red Cell Distribution Width 13.5 % (11.5-14.5) Platelet Count 276 x10^3/uL (140-400) Neutrophils (%) (Auto) 51 % (31-73) Lymphocytes (%) (Auto) 34 % (24-48) Monocytes (%) (Auto) 9 % (0-9) Eosinophils (%) (Auto) 6 % (0-3) Basophils (%) (Auto) 1 % (0-3) Neutrophils # (Auto) 3.6 x10^3/uL (1.8-7.7) Lymphocytes # (Auto) 2.4 x10^3/uL (1.0-4.8) Monocytes # (Auto) 0.6 x10^3/uL (0.0-1.1) Eosinophils # (Auto) 0.4 x10^3/uL (0.0-0.7) Basophils # (Auto) 0.0 x10^3/uL (0.0-0.2) Sodium Level 140 mmol/L (136-145) Potassium Level 3.6 mmol/L (3.5-5.1) Chloride Level 105 mmol/L (98-107) Carbon Dioxide Level 27 mmol/L (21-32) Anion Gap 8 (6-14) Blood Urea Nitrogen 11 mg/dL (7-20) Creatinine 0.5 mg/dL (0.6-1.0) Estimated GFR (Cockcroft-Gault) 117.3 BUN/Creatinine Ratio 22 (6-20) Glucose Level 70 mg/dL (70-99) Calcium Level 8.4 mg/dL (8.5-10.1) Total Bilirubin 0.8 mg/dL (0.2-1.0) Aspartate Amino Transf (AST/SGOT) 13 U/L (15-37) Alanine Aminotransferase (ALT/SGPT) 14 U/L (14-59) Alkaline Phosphatase 58 U/L (46-116) Total Protein 6.5 g/dL (6.4-8.2) Albumin 2.5 g/dL (3.4-5.0) Albumin/Globulin Ratio 0.6 (1.0-1.7) Notes She is resting in bed. Hinged knee brace is in place. Compartments are soft throughout. Skin is intact. Problems: (1) Tibia/fibula fracture Assessment and Plan We will plan on her being nonweightbearing, remain in the hinged knee brace. The brace can be opened up and 2 to 3 weeks for a little range of motion, 0-30 and then progressed by 30 degrees every 2 weeks. I will see her back in my clinic in 2 weeks. From my standpoint she can be transferred when medically stable and a bed is available Problem Qualifiers (1) Tibia/fibula fracture: Encounter type: subsequent encounter Fracture type: closed Laterality: right Fracture healing: with routine healing Qualified Codes: S82.201D - Unspecified fracture of shaft of right tibia, subsequent encounter for closed fracture with routine healing; S82.401D - Unspecified fracture of shaft of right fibula, subsequent encounter for closed fracture with routine healing MICHELLE OTTO II, MD Jun 16, 2021 08:31
[2021-06-16] MEDS: SENNOSIDES/DOCUSATE 8.6/50MG TABLET. PO SCH (09:43)
[2021-06-16] MEDS: ASPIRIN ENTERIC COATED 81 MG TABLET.DR. PO SCH (09:43)
[2021-06-16 11:00] VITALS: BP_SYST 106; BP_SYST 133; BP_DIAS 65; BP_DIAS 72
--- NOTE | 2021-06-16 12:08 | PDOC ---
[facility] PROGRESS NOTE Date of Service DOS: DATE: 06/16/21 TIME: 11:53 Chief Complaint Chief Complaint Right proximal tib-fib fracture Acute pain Dementia, poor ability to direct History of arthritis History of hypertension History of lymphedema Obesity, BMI listed as 34, she looks larger FEN - Regular diet PPX - lovenox CODE - full Dispo - inpatient, can be discharged History of Present Illness History of Present Illness 06/13: Saw her this AM and she fought with the RAREFORM when he was putting a brace on her leg, compliance and PT OT ability to work with her will probably be limited 06/14: Low BP, required fluid bolus. 06/16: Pleasantly demented. Does not comprehend brace very well. Clearly recommended to do acute rehabilitation. Discussed with son. Vitals/I&O Vitals/I&O: Vital Signs Date Time Temp Pulse Resp B/P (MAP) Pulse Ox O2 Delivery O2 Flow Rate FiO2 06/16/21 11:00 98.4 72 18 133/72 (92) 93 Room Air 95.0 98.4 I & O 06/15/21 06/15/21 06/16/21 15:00 23:00 07:00 Intake Total 60 ml 0 ml 200 ml Balance 60 ml 0 ml 200 ml Physical Exam Physical Exam: not oriented General: No acute distress, Other (Opens eyes. Screams profanity. Wiggles toes on command. GCS 13) Heart: Regular rate Lungs: Clear Abdomen: Soft, Other (Morbid obesity) Extremities: No cyanosis, No tenderness/swelling (Right lower leg), Other (Diffuse bilateral lower extremity edema) Skin: Other (No obvious lacerations or abrasions noted. Stasis dermatitis noted. Erythema and ecchymosis right lower extremity.) Labs Labs: Laboratory Tests Test 06/16/21 04:15 White Blood Count 7.1 x10^3/uL (4.0-11.0) Red Blood Count 3.11 x10^6/uL (3.50-5.40) Hemoglobin 10.9 g/dL (12.0-15.5) Hematocrit 31.9 % (36.0-47.0) Mean Corpuscular Volume 102 fL (79-100) Mean Corpuscular Hemoglobin 35 pg (25-35) Mean Corpuscular Hemoglobin Concent 34 g/dL (31-37) Red Cell Distribution Width 13.5 % (11.5-14.5) Platelet Count 276 x10^3/uL (140-400) Neutrophils (%) (Auto) 51 % (31-73) Lymphocytes (%) (Auto) 34 % (24-48) Monocytes (%) (Auto) 9 % (0-9) Eosinophils (%) (Auto) 6 % (0-3) Basophils (%) (Auto) 1 % (0-3) Neutrophils # (Auto) 3.6 x10^3/uL (1.8-7.7) Lymphocytes # (Auto) 2.4 x10^3/uL (1.0-4.8) Monocytes # (Auto) 0.6 x10^3/uL (0.0-1.1) Eosinophils # (Auto) 0.4 x10^3/uL (0.0-0.7) Basophils # (Auto) 0.0 x10^3/uL (0.0-0.2) Sodium Level 140 mmol/L (136-145) Potassium Level 3.6 mmol/L (3.5-5.1) Chloride Level 105 mmol/L (98-107) Carbon Dioxide Level 27 mmol/L (21-32) Anion Gap 8 (6-14) Blood Urea Nitrogen 11 mg/dL (7-20) Creatinine 0.5 mg/dL (0.6-1.0) Estimated GFR (Cockcroft-Gault) 117.3 BUN/Creatinine Ratio 22 (6-20) Glucose Level 70 mg/dL (70-99) Calcium Level 8.4 mg/dL (8.5-10.1) Total Bilirubin 0.8 mg/dL (0.2-1.0) Aspartate Amino Transf (AST/SGOT) 13 U/L (15-37) Alanine Aminotransferase (ALT/SGPT) 14 U/L (14-59) Alkaline Phosphatase 58 U/L (46-116) Total Protein 6.5 g/dL (6.4-8.2) Albumin 2.5 g/dL (3.4-5.0) Albumin/Globulin Ratio 0.6 (1.0-1.7) Assessment and Plan Assessmemt and Plan Problems Medical Problems: (1) Tibia/fibula fracture Status: Acute Comment Review of Relevant I have reviewed the following items paulino (where applicable) has been applied. Justifications for Admission Other Justification AUGUSTA BERMAN MD Jun 16, 2021 12:08
[2021-06-16] MEDS ORDERED: TRAM50TA PO (12:11)
--- NOTE | 2021-06-16 12:13 | SNU/HH DC ---
DISCHARGE ORDERS DISCHARGE INFORMATION: DISCHARGE DATE: Jun 16, 2021 FINAL DIAGNOSIS Problems Medical Problems: (1) Tibia/fibula fracture Status: Acute CONDITION ON DISCHARGE: Stable CODE STATUS: Code Status: DNR/DNI PRISON: SNF STAY <30 DAYS: Yes POST DISCHARGE ORDERS: ACTIVITY ORDERS: Progressive ambulation WEIGHT BEARING STATUS: Non weight bearing, Other, see below BATHING ORDERS: No Tub Bath until see DIET AFTER DISCHARGE: Cardiac WOUND/INCISION CARE: No wound care needed CHECKS AFTER DISCHARGE: CHECKS AFTER DISCHARGE: Check blood press - daily, Check your Temp as needed FOLLOW-UP: Additional Instructions: We will plan on her being nonweightbearing, remain in the hinged knee brace. The brace can be opened up and 2 to 3 weeks for a little range of motion, 0-30 and then progressed by 30 degrees every 2 weeks. Ortho clinic in 2 weeks [facility] Orthopedic surgery - Dr. Musa Mcbride [address] [place] [place] [address] P: TREATMENT/EQUIPMENT ORDERS: ADAPTIVE EQUIPMENT NEEDED: Brace/splint Physical Therapy For: Evalulation/Treatment Occupational Therapy For: Evaluation/Treatment DISCHARGE MEDICATIONS: Home Meds Active Scripts Tramadol Hcl (TRAMADOL HCL) 50 Mg Tablet, 50 MG PO PRN Q6HRS PRN for MILD TO MODERATE PAIN for 6 Days, #18 TAB 0 Refills Prov:AUGUSTA BERMAN MD 06/16/21 Docusate Sodium (COLACE) 100 Mg Capsule, 100 MG PO PRN DAILY PRN for CONSTIPATION for 30 Days, #60 CAP Prov:AUGUSTA BERMAN MD 01/31/18 Acetaminophen (TYLENOL) 325 Mg Tablet, 650 MG PO PRN Q6HRS PRN for pain/fever for 30 Days, #60 TAB Prov:AUGUSTA BERMAN MD 01/31/18 Aspirin (ASPIRIN EC) 81 Mg Tablet.dr, 81 MG PO DAILYWBKFT for PPX for 30 Days, #30 TAB.SR Prov:AUGUSTA BERMAN MD 01/31/18 Reported Medications Sennosides/Docusate Sodium (SENNA PLUS TABLET) 1 Each Tablet, 1 TAB PO BID for constipation for 20 Days, #40 TAB 0 Refills 06/12/21 Nystatin (NYSTATIN) 15 Gm Powder, 1 ANGUS TP DAILY PRN for RASH for 7 Days, #1 BOTTLE 0 Refills apply to affected area(s) 06/12/21 Mirtazapine (MIRTAZAPINE) 15 Mg Tablet, 1 TAB PO QHS for depression, #30 TAB 3 Refills 06/12/21 Furosemide (FUROSEMIDE) 20 Mg Tablet, 1 TAB PO DAILY for edema, #90 TAB 1 Refill 06/12/21 Escitalopram Oxalate (ESCITALOPRAM OXALATE) 10 Mg Tablet, 1 TAB PO DAILY for depression, #30 TAB 3 Refills 06/12/21 Cholecalciferol (Vitamin D3) (D3-50) 50,000 Unit Capsule, 1000 UNIT PO BID for vit D, CAP 06/12/21 Aripiprazole (ABILIFY) 2 Mg Tablet, 2 MG PO HS for psychosis, TAB 06/12/21 Vitamin B Complex/Folic Acid (Super B Maxi Complex Caplet) 0.4 Mg Tablet, 0.4 MG PO DAILY, TAB 01/26/18 [D3] No Conflict Check, 25 MCG PO DAILY 01/26/18 Calcium Carbonate (CALCIUM) 600 Mg Tablet, 600 MG PO DAILY, TAB 01/26/18 Gluc 2KCL/Chondr/Sourav Hy/Hy Ac (GLUCOSAMINE & CHONDROITIN CAP) 1 Each Capsule, 1 EACH PO BID, CAP 01/26/18 Meloxicam (MELOXICAM) 7.5 Mg Tablet, 1 TAB PO BID, #30 TAB 2 Refills 01/26/18 Lisinopril (LISINOPRIL) 10 Mg Tablet, 1 TAB PO DAILY, #30 TAB 5 Refills 01/26/18 Potassium Chloride (POTASSIUM CHLORIDE ) 20 Meq Tablet.er, 20 MEQ PO DAILY, TAB.SR 01/26/18 Discontinued Reported Medications Furosemide (LASIX) 80 Mg Tablet, 1 TAB PO DAILY, #60 TAB 3 Refills 01/26/18 AUGUSTA BERMAN MD Jun 16, 2021 12:13
--- NOTE | 2021-06-16 12:16 | PDOC3 ---
Discharge Summary Visit Information Date of Admission: Jun 12, 2021 Date of Discharge: Jun 16, 2021 Admitting Diagnosis: Right tib/fib fracture Final Diagnosis Problems Medical Problems: (1) Tibia/fibula fracture Status: Acute Brief Hospital Course Allergies Allergies Coded Allergies Type Severity Reaction Last Updated Verified No Known Drug Allergies 01/26/18 No Vital Signs Vital Signs Date Time Temp Pulse Resp B/P (MAP) Pulse Ox O2 Delivery O2 Flow Rate FiO2 06/16/21 11:00 98.4 72 18 133/72 (92) 93 Room Air 95.0 98.4 Lab Results Laboratory Tests Test 06/15/21 06:25 06/16/21 04:15 White Blood Count 6.9 x10^3/uL (4.0-11.0) 7.1 x10^3/uL (4.0-11.0) Red Blood Count 2.79 x10^6/uL (3.50-5.40) 3.11 x10^6/uL (3.50-5.40) Hemoglobin 9.8 g/dL (12.0-15.5) 10.9 g/dL (12.0-15.5) Hematocrit 28.4 % (36.0-47.0) 31.9 % (36.0-47.0) Mean Corpuscular Volume 102 fL (79-100) 102 fL (79-100) Mean Corpuscular Hemoglobin 35 pg (25-35) 35 pg (25-35) Mean Corpuscular Hemoglobin Concent 35 g/dL (31-37) 34 g/dL (31-37) Red Cell Distribution Width 13.2 % (11.5-14.5) 13.5 % (11.5-14.5) Platelet Count 242 x10^3/uL (140-400) 276 x10^3/uL (140-400) Neutrophils (%) (Auto) 59 % (31-73) 51 % (31-73) Lymphocytes (%) (Auto) 27 % (24-48) 34 % (24-48) Monocytes (%) (Auto) 9 % (0-9) 9 % (0-9) Eosinophils (%) (Auto) 4 % (0-3) 6 % (0-3) Basophils (%) (Auto) 1 % (0-3) 1 % (0-3) Neutrophils # (Auto) 4.1 x10^3/uL (1.8-7.7) 3.6 x10^3/uL (1.8-7.7) Lymphocytes # (Auto) 1.8 x10^3/uL (1.0-4.8) 2.4 x10^3/uL (1.0-4.8) Monocytes # (Auto) 0.6 x10^3/uL (0.0-1.1) 0.6 x10^3/uL (0.0-1.1) Eosinophils # (Auto) 0.3 x10^3/uL (0.0-0.7) 0.4 x10^3/uL (0.0-0.7) Basophils # (Auto) 0.0 x10^3/uL (0.0-0.2) 0.0 x10^3/uL (0.0-0.2) Sodium Level 137 mmol/L (136-145) 140 mmol/L (136-145) Potassium Level 3.4 mmol/L (3.5-5.1) 3.6 mmol/L (3.5-5.1) Chloride Level 105 mmol/L (98-107) 105 mmol/L (98-107) Carbon Dioxide Level 25 mmol/L (21-32) 27 mmol/L (21-32) Anion Gap 7 (6-14) 8 (6-14) Blood Urea Nitrogen 12 mg/dL (7-20) 11 mg/dL (7-20) Creatinine 0.6 mg/dL (0.6-1.0) 0.5 mg/dL (0.6-1.0) Estimated GFR (Cockcroft-Gault) 95.0 117.3 BUN/Creatinine Ratio 20 (6-20) 22 (6-20) Glucose Level 89 mg/dL (70-99) 70 mg/dL (70-99) Calcium Level 8.0 mg/dL (8.5-10.1) 8.4 mg/dL (8.5-10.1) Total Bilirubin 0.7 mg/dL (0.2-1.0) 0.8 mg/dL (0.2-1.0) Aspartate Amino Transf (AST/SGOT) 10 U/L (15-37) 13 U/L (15-37) Alanine Aminotransferase (ALT/SGPT) 10 U/L (14-59) 14 U/L (14-59) Alkaline Phosphatase 56 U/L (46-116) 58 U/L (46-116) Total Protein 6.1 g/dL (6.4-8.2) 6.5 g/dL (6.4-8.2) Albumin 2.4 g/dL (3.4-5.0) 2.5 g/dL (3.4-5.0) Albumin/Globulin Ratio 0.6 (1.0-1.7) 0.6 (1.0-1.7) Laboratory Tests Test 06/16/21 04:15 White Blood Count 7.1 x10^3/uL (4.0-11.0) Red Blood Count 3.11 x10^6/uL (3.50-5.40) Hemoglobin 10.9 g/dL (12.0-15.5) Hematocrit 31.9 % (36.0-47.0) Mean Corpuscular Volume 102 fL (79-100) Mean Corpuscular Hemoglobin 35 pg (25-35) Mean Corpuscular Hemoglobin Concent 34 g/dL (31-37) Red Cell Distribution Width 13.5 % (11.5-14.5) Platelet Count 276 x10^3/uL (140-400) Neutrophils (%) (Auto) 51 % (31-73) Lymphocytes (%) (Auto) 34 % (24-48) Monocytes (%) (Auto) 9 % (0-9) Eosinophils (%) (Auto) 6 % (0-3) Basophils (%) (Auto) 1 % (0-3) Neutrophils # (Auto) 3.6 x10^3/uL (1.8-7.7) Lymphocytes # (Auto) 2.4 x10^3/uL (1.0-4.8) Monocytes # (Auto) 0.6 x10^3/uL (0.0-1.1) Eosinophils # (Auto) 0.4 x10^3/uL (0.0-0.7) Basophils # (Auto) 0.0 x10^3/uL (0.0-0.2) Sodium Level 140 mmol/L (136-145) Potassium Level 3.6 mmol/L (3.5-5.1) Chloride Level 105 mmol/L (98-107) Carbon Dioxide Level 27 mmol/L (21-32) Anion Gap 8 (6-14) Blood Urea Nitrogen 11 mg/dL (7-20) Creatinine 0.5 mg/dL (0.6-1.0) Estimated GFR (Cockcroft-Gault) 117.3 BUN/Creatinine Ratio 22 (6-20) Glucose Level 70 mg/dL (70-99) Calcium Level 8.4 mg/dL (8.5-10.1) Total Bilirubin 0.8 mg/dL (0.2-1.0) Aspartate Amino Transf (AST/SGOT) 13 U/L (15-37) Alanine Aminotransferase (ALT/SGPT) 14 U/L (14-59) Alkaline Phosphatase 58 U/L (46-116) Total Protein 6.5 g/dL (6.4-8.2) Albumin 2.5 g/dL (3.4-5.0) Albumin/Globulin Ratio 0.6 (1.0-1.7) Brief Hospital Course Ms Kennedy is an 85-year-old female w/ PMHx Arthritis, Dementia, Depression, Hy pertension, lymphedema that presented 06/12/2021 via [facility] with right lower leg pain. According to the custodial report, patient was in her wheelchair on 10 June, and her leg got caught underneath the wheelchair when her wheelchair got caught in a drain, they initially did an x-ray of her foot because that is where her pain was, today they noticed that her right lower leg was bruised and swollen, they repeated another x-ray of her tib-fib and noted to have a tib-fib fracture. Patient has history of dementia and is not able to participate in the HPI. 06/13: Saw her this AM and she fought with the Rosalind when he was putting a brace on her leg, compliance and PT OT ability to work with her will probably be limited 06/14: Low BP, required fluid bolus. 06/16: Pleasantly demented. Does not comprehend brace very well. Clearly recommended to do acute rehabilitation. Discussed with son, he notes that she is a DNR/DNI and would not wish to update this with [facility] facility paperwork Consults: Orthopedic surgery Problem list: Right proximal tib-fib fracture Acute pain Dementia, poor ability to direct History of arthritis History of hypertension History of lymphedema Obesity, BMI listed as 34, she looks larger Plan: Fully progressive ambulation with nonweightbearing initially every 2 weeks can increase her hinged knee brace from 0 to 30 degrees. We will follow-up with orthopedic surgery in 2 weeks Greater than 30 minutes spent on discharge to SNF Discharge Information Condition at Discharge: Stable Follow Up: Weeks (1) Disposition/Orders: D/C to Another Facility Scheduled Aripiprazole (Abilify) 2 Mg Tablet, 2 MG PO HS for psychosis, (Reported) Entered as Reported by: TRENTON CORNELL on 06/12/211825 Last Action: Continued on 06/13/211936 by IDALIA BLACK Aspirin (Aspirin Ec) 81 Mg Tablet.dr, 81 MG PO DAILYWBKFT for PPX for 30 Days, #30 Prescribed by: AUGUSTA BERMAN MD on 01/31/18 1337 Last Action: Continued on 06/13/211936 by IDALIA BLACK Calcium Carbonate (Calcium) 600 Mg Tablet, 600 MG PO DAILY, (Reported) Entered as Reported by: Latrice Marrero on 01/26/18 2200 Last Action: Reviewed on 06/12/211825 by TRENTON CORNELL Cholecalciferol (Vitamin D3) (D3-50) 50,000 Unit Capsule, 1,000 UNIT PO BID for vit D, (Reported) Entered as Reported by: TRENTON CORNELL on 06/12/211825 Last Action: New Order on 06/12/211825 by TRENTON CORNELL Escitalopram Oxalate (Escitalopram Oxalate) 10 Mg Tablet, 1 TAB PO DAILY for depression, #30 Ref 3 (Reported) Entered as Reported by: TRENTON CORNELL on 06/12/211825 Last Action: New Order on 06/12/211825 by TRENTON CORNELL Furosemide (Furosemide) 20 Mg Tablet, 1 TAB PO DAILY for edema, #90 Ref 1 (Reported) Entered as Reported by: TRENTON CORNELL on 06/12/211825 Last Action: Continued on 06/13/211936 by IDALIA BLACK Gluc 2KCL/Chondr/Sourav Hy/Hy Ac (Glucosamine & Chondroitin Cap) 1 Each Capsule, 1 EACH PO BID, (Reported) Entered as Reported by: Latrice Marrero on 01/26/182199 Last Action: Reviewed on 06/12/211825 by TRENTON CRONELL Lisinopril (Lisinopril) 10 Mg Tablet, 1 TAB PO DAILY, #30 Ref 5 (Reported) Entered as Reported by: Latrice Marrero on 01/26/182155 Last Action: Continued on 06/13/211936 by IDALIA BLACK Meloxicam (Meloxicam) 7.5 Mg Tablet, 1 TAB PO BID, #30 Ref 2 (Reported) Entered as Reported by: Latrice Marrero on 01/26/182155 Mirtazapine (Mirtazapine) 15 Mg Tablet, 1 TAB PO QHS for depression, #30 Ref 3 (Reported) Entered as Reported by: TRENTON CORNELL on 06/12/211825 Last Action: New Order on 06/12/211825 by TRENTON CORNELL Potassium Chloride (Potassium Chloride ) 20 Meq Tablet.er, 20 MEQ PO DAILY, (Reported) Entered as Reported by: Latrice Marrero on 01/26/182155 Last Action: Continued on 06/13/211936 by IDALIA BLACK Sennosides/Docusate Sodium (Senna Plus Tablet) 1 Each Tablet, 1 TAB PO BID for constipation for 20 Days, #40 Ref 0 (Reported) Entered as Reported by: TRENTON CORNELL on 06/12/211825 Last Action: Continued on 06/13/211936 by IDALIA BLACK Vitamin B Complex/Folic Acid (Super B Maxi Complex Caplet) 0.4 Mg Tablet, 0.4 MG PO DAILY, (Reported) Entered as Reported by: Latrice Marrero on 01/26/182202 Last Action: Reviewed on 06/12/211825 by TRENTON CORNELL [D3] , 25 MCG PO DAILY, (Reported) Entered as Reported by: Latrice Marrero on 01/26/182201 Scheduled PRN Acetaminophen (Tylenol) 325 Mg Tablet, 650 MG PO PRN Q6HRS PRN for pain/fever for 30 Days, #60 Prescribed by: AUGUSTA BERMAN MD on 01/31/18 1337 Last Action: Continued on 06/13/211936 by IDALIA BLACK Docusate Sodium (Colace) 100 Mg Capsule, 100 MG PO PRN DAILY PRN for CONSTIPATION for 30 Days, #60 Prescribed by: AUGUSTA BERMAN MD on 01/31/18 1337 Nystatin (Nystatin) 15 Gm Powder, 1 ANGUS TP DAILY PRN for RASH for 7 Days, #1 Ref 0 (Reported) apply to affected area(s) Entered as Reported by: TRENTON CORNELL on 06/12/211825 Last Action: New Order on 06/12/211825 by TRENTON CORNELL Tramadol Hcl (Tramadol Hcl) 50 Mg Tablet, 50 MG PO PRN Q6HRS PRN for MILD TO MODERATE PAIN for 6 Days, #18 Ref 0 Prescribed by: AUGUSTA BERMAN MD on 06/16/21 1211 Discontinued Medications Furosemide (Lasix) 80 Mg Tablet, 1 TAB PO DAILY, #60 Ref 3 (Reported) Entered as Reported by: Latrice Marrero on 01/26/185 Justicifation of Admission Dx: Justifications for Admission: Justification of Admission Dx: Yes AUGUSTA BERMAN MD Jun 16, 2021 12:16
[2021-06-16 15:00] VITALS: BP 123/71
--- NOTE | 2021-06-16 17:44 | NUR ---
pt. discharged to [place] via [facility] per transport service.
== END 2021-06-16 17:01 | DRG 563 ==
LOC: ER 10:51 → 4 NORTH 12:10
PROVIDERS: ADMIT Internal Medicine; ATTEND Internal Medicine
DX: S82.191A Other fracture of upper end of right tibia, initial encounter for closed fracture (principal); S82.831A Other fracture of upper and lower end of right fibula, initial encounter for closed fracture; E11.9 Type 2 diabetes mellitus without complications; E66.01 Morbid (severe) obesity due to excess calories; E78.5 Hyperlipidemia, unspecified; F03.90 Unspecified dementia, unspecified severity, without behavioral disturbance, psychotic disturbance, mood disturbance, and anxiety; I10 Essential (primary) hypertension; Z20.822 Contact with and (suspected) exposure to COVID-19; W05.0XXA Fall from non-moving wheelchair, initial encounter; Z82.49 Family history of ischemic heart disease and other diseases of the circulatory system; Z99.3 Dependence on wheelchair; F32.A Depression, unspecified; K21.9 Gastro-esophageal reflux disease without esophagitis; M19.90 Unspecified osteoarthritis, unspecified site; Z68.34 Body mass index [BMI] 34.0-34.9, adult; W18.39XA Other fall on same level, initial encounter; Y93.89 Activity, other specified; Y92.89 Other specified places as the place of occurrence of the external cause; Y99.8 Other external cause status
CPT/HCPCS: 36415; 71045; 72170; 73590; 80053; 84484; 85025; 85610; 85730; 87426; 93005; 96374; J3010; J7040; U0003; 99285-25; G0378